=== PATIENT | female | born 1945 | race Caucasian/White ===

== ENCOUNTER 2017-03-27 08:43 | Day surgery (SDC) | payer OTHER, MEDICAID ==
[~2017-03-27] VITALS: Ht 157.5 cm; Wt 77.3 kg
[2017-03-27 08:58] VITALS: BP 131/79; PULSE 92; RESP 20; TEMP 98.2; O2SAT 94
[2017-03-27] MEDS ORDERED: LISI10TA3 PO (09:34)
[2017-03-27] MEDS ORDERED: OMEP20TA93 PO (09:34)
[2017-03-27] MEDS ORDERED: TAMO20TA6 PO (09:34)
[2017-03-27] MEDS ORDERED: LIDOCAINE HCL 1% 20 ML VIAL ONE (09:57)
[2017-03-27] MEDS ORDERED: SODIUM CHLOR 0.9% 1000 ML IV SCH ×2 (10:00)
[2017-03-27] MEDS ORDERED: SODIUM CHLORIDE 2 ML FLUSH PRN IV FLUSH (10:00)
[2017-03-27] MEDS ORDERED: MIDAZOLAM HCL 2 MG/2 ML VIAL ONE ×2 (10:31→10:34)
--- NOTE | 2017-03-27 11:06 | PD.RAD ---
Post CT Procedure Prog Note Pre Procedure Diagnosis: (1) Metastasis Post Procedure Diagnosis: (1) Metastasis Procedure Date: Mar 27, 2017 Supervising Radiologist: Sudhir Castro Anesthesia: Conscious Sedation Plan of Activity Patient to Unit: [facility] Patient Condition: Good See PACS Report for procedural detail/treatment Sudhir Castro MD Mar 27, 2017 11:06
[2017-03-27 11:20] VITALS: BP 110/68; PULSE 81; RESP 20; TEMP 98.1; O2SAT 94
[2017-03-27 11:35] VITALS: BP 120/73; PULSE 90; RESP 18; O2SAT 92
--- NOTE | 2017-03-27 11:49 | RADRPT ---
EXAM DATE/TIME: 03/27/2017 10:48 [facility] COMPARISON: No previous studies available for comparison. INDICATIONS : Concern for omental carcinomatosis. SEDATION TIME: 30 minutes BIOPSY SITE: abdomen MEDICATION(S): 1.) 3 mg midazolam (Versed) IV 2.) 150 mcg fentanyl (Sublimaze) IV DEVICE(S): 1.) 19 gauge 11cm 2.) 20 gauge Biopsy gun 16cm MEDICAL HISTORY : Carcinoma, breast. SURGICAL HISTORY : Cholecystectomy ENCOUNTER: Initial ACUITY: 1 day PAIN SCORE: 0/10 LOCATION: anterior A total of three core specimen(s) were obtained and sent to the laboratory for pathologic evaluation. PROCEDURE: 1. CT guided abdomen biopsy. 2. Conscious sedation with continuous EKG and oximetry monitoring. Prior to the procedure informed consent was obtained. Any appropriate prior imaging studies were rev iewed. Using automated exposure control and adjustment of the mA and/or kV according to patient size, radiat ion dose was kept as low as reasonably achievable to obtain optimal diagnostic quality images. DICOM format image data is available electronically for review and comparison. The site was prepped in a sterile fashion. Full sterile technique was used, including cap, mask, miguel angel rile gloves and gown and a large sterile sheet. Hand hygiene and 2% chlorhexidine and/or betadine/al cohol prep was utilized per protocol for cutaneous antisepsis. The skin and subcutaneous tissues wer e infiltrated with local anesthetic solution. With CT guidance the previously identified target was localized. Biopsy was performed using the presc ribed needle as above. Adequate hemostasis was obtained with compression at the puncture site. Follow-up CT scan reveals no hemorrhage. The patient tolerated the procedure well and there were no complications. The patient was returned to the Radiology Outpatient Unit in stable condition. CONCLUSION: Uncomplicated CT guided omental biopsy. Sudhir Castro MD on March 27, 2017 at 11:47 Board Certified Radiologist. This report was verified electronically.
[2017-03-27 12:05] VITALS: BP 120/74; PULSE 82; RESP 18; O2SAT 92
[2017-03-27 12:35] VITALS: BP 128/77; PULSE 93; RESP 18; O2SAT 92
[2017-03-27] MEDS ORDERED: SODIUM CHLORIDE 2 ML FLUSH BID IV FLUSH SCH (21:00)
== END 2017-03-27 12:50 | disposition home or self-care (01) ==
LOC: HRAD 08:43 → HRIP 08:46 → HRAD 12:50
PROVIDERS: ATTEND Internal Medicine
DX: C78.6 Secondary malignant neoplasm of retroperitoneum and peritoneum (principal); C50.912 Malignant neoplasm of unspecified site of left female breast; I10 Essential (primary) hypertension
CPT/HCPCS: 49180; 77012; 85610; 85730; 88305; 88341; 88342; 99152; 99153; J2250; J3010

== ENCOUNTER 2017-04-10 06:20 | Day surgery (SDC) | payer OTHER ==
[~2017-04-10] VITALS: Ht 157.5 cm; Wt 78.6 kg
[~2017-04-10 06:20] MED LIST: LISI10TA3 PO; OMEP20TA93 PO; TAMO20TA6 PO
[2017-04-10] MEDS ORDERED: IOHEXOL 350 MG/ML 50 ML BTL (for RAD DIAG) OTHER ONE (06:21)
[2017-04-10 06:40] VITALS: BP 142/84; PULSE 86; RESP 20; TEMP 98.4; O2SAT 95
[2017-04-10] MEDS ORDERED: POVIDONE IODINE 5% (ANTISEPSIS KIT) 4 APPLICATIONS EACH NARE SCH (07:00)
[2017-04-10] MEDS ORDERED: SODIUM CHLORIDE 0.9% 1000 ML IV SCH (07:00)
[2017-04-10] MEDS ORDERED: ceFAZolin 2 GM PREMIX 50 ML - implanted port/tunneled catheter insertion IV SCH (07:00)
[2017-04-10] MEDS ORDERED: CHLORHEXIDINE GLUCONATE 2 % 1 PACK (2 CLOTHS) TOPICAL SCH (07:00)
[2017-04-10] MEDS ORDERED: VANCOMYCIN 1000 MG/NS 250 ML - implanted port/tunneled catheter IV SCH ×2 (07:00)
[2017-04-10 07:14] LABS: AUTOMATED NEUTROPHIL # 4.7 TH/MM3 (1.8-7.7); BASOPHIL % 0.5 % (0.0-2.0); EOSINOPHIL # 0.1 TH/MM3 (0-0.4); EOSINOPHIL % 1.7 % (0.0-4.0); HEMATOCRIT 41.6 % (35.0-46.0); HEMOGLOBIN 14.7 GM/DL (11.6-15.3); LYMPH % 26.3 % (9.0-44.0); LYMPHOCYTE # 2.2 TH/MM3 (1.0-4.8); MEAN CELL VOLUME 94.9 FL (80.0-100.0); MEAN CORPUSCULAR HEMOGLOBIN 33.4 PG (27.0-34.0); MEAN CORPUSCULAR HGB CONC 35.2 % (32.0-36.0); MEAN PLATELET VOLUME 8.5 FL (7.0-11.0); MONO % 14.9 % (0.0-8.0); MONOCYTE # 1.2 TH/MM3 (0-0.9); NEUT % 56.6 % (16.0-70.0); PLATELET COUNT 258 TH/MM3 (150-450); RED BLOOD COUNT 4.39 MIL/MM3 (4.00-5.30); WHITE BLOOD COUNT 8.3 TH/MM3 (4.0-11.0)
[2017-04-10] MEDS ORDERED: MIDAZOLAM HCL 2 MG/2 ML VIAL ONE ×3 (07:32→08:36)
[2017-04-10] MEDS ORDERED: LIDOCAINE 1%/EPINEPHrine 1:100,000 SOLN 30 ML VIAL ONE (07:47)
[2017-04-10 09:00] VITALS: BP 137/75; PULSE 85; RESP 18; TEMP 98.1; O2SAT 96
[2017-04-10 09:15] VITALS: BP 112/79; PULSE 81; RESP 17; O2SAT 96
--- NOTE | 2017-04-10 09:21 | RADRPT ---
EXAM DATE/TIME: 04/10/2017 09:19 [facility] COMPARISON: No previous studies available for comparison. INDICATIONS : Patient presents with breast cancer in need of port placement for chemotherapy treatment. MEDICAL HISTORY : Migraines GERD Breast cancer HTN Osteoporosis Kidney stone SURGICAL HISTORY : Lumpectomy Lymph nodes Anel Shoulder sx ENCOUNTER: Initial ACUITY: 3 weeks PAIN SCORE: 0/10 LOCATION: N/A FLUORO TIME: 0.8 minutes IMAGE SERIES: 2 SEDATION TIME: 45 minutes CONTRAST: 8 cc Omnipaque (iohexol) 350 ACCESS: Right internal jugular vein SEDATION: 1.) 4.5 mg midazolam (Versed) IV 2.) 225 mcg fentanyl (Sublimaze) IV Prophylactic antibiotics were administered with appropriate pre-procedure timing. Vancomycin within 2 hours of procedure, Ancef (or alternative) within 1 hour of procedure. DEVICE: 1. 8 Kinyarwanda single lumen Bard Power Port PROCEDURE : 1. Continuous pulse oximetry and EKG monitoring. 2. Intravenous conscious sedation. 3. Ultrasound guidance for venous access. 4. Fluoroscopic guided implantable central venous port placement. The patient was placed supine. The neck was prepped in sterile fashion. Full sterile technique was u sed, including cap, mask, sterile gloves and gown, and a large sterile sheet. Hand hygiene and 2% ch lorhexidine Betadine was utilized per protocol for cutaneous antisepsis with appropriate dry time for site. Sterile gel and sterile probe cover were utilized for ultrasound guidance. The skin and sub cutaneous tissues were infiltrated with local anesthetic solution. Under direct ultrasound guidance, central venous access was accomplished in the targeted vessel. The ultrasound images depicting access guidance were stored and saved to PACS for permanent record. A s ubcutaneous pocket was created using blunt dissection. The port was introduced to the pocket. The c atheter tubing was fed through a subcutaneous tunnel to the venotomy site. The catheter tubing was c ut to a suitable length and then was introduced through a valved Peel-Away sheath and positioned with catheter tubing tip at the cavo-atrial junction level. The pocket incision was closed with subcutic ular Vicryl suture. Steri-Strips were applied. The port was flushed and locked with heparin solutio n per protocol. Sterile dressing was applied to the site. The patient tolerated the procedure well. Conscious sedation was performed with the prescribed dosages and duration as above in the presence of an independent trained radiology nurse to assist in the monitoring of the patient. EKG and oximetry remained stable throughout the procedure. The patient tolerated the procedure well and there were no complications. The patient was sent to post anesthesia recovery in stable condition. CONCLUSION: Uncomplicated ultrasound and fluoroscopic guided implanted central venous port catheter placement as described in detail above. An 8 Kinyarwanda Power port was placed. Micky Gonzalez MD on April 10, 2017 at 9:19 Board Certified Radiologist. This report was verified electronically.
[2017-04-10 09:45] VITALS: BP 121/69; PULSE 86; RESP 17; O2SAT 98
--- NOTE | 2017-04-10 09:54 | PD.RAD ---
Post Procedure Progress Note Pre Procedure Diagnosis: (1) Breast CA Post Procedure Diagnosis: (1) Breast CA Procedure Date: Apr 10, 2017 Supervising Radiologist: Micky Gonzalez Proceduralist/Assist: RT Ramon(R)(CV) Anesthesia: Local, Conscious Sedation Plan of Activity Patient to Unit: [facility] Patient Condition: Good See PACS Report for procedural detail/treatment Central Venous Access Device Procedure 1 Right Internal Jugular Infusaport Placement single lumen [place]an: 8 Micky Gonzalez MD Apr 10, 2017 09:54
[2017-04-10] MEDS ORDERED: SODIUM CHLORIDE 0.9% FLUSH 10 ML FLUSH IVF PRN (10:00)
[2017-04-10 10:15] VITALS: BP 136/64; PULSE 83; RESP 16; O2SAT 97
[2017-04-10 13:06] VITALS: BP 130/62; PULSE 84; RESP 17; O2SAT 97
== END 2017-04-10 11:15 | disposition home or self-care (01) ==
LOC: HROP 06:20 → HRIP 06:21 → HROP 11:15
PROVIDERS: ATTEND Internal Medicine
DX: Z45.2 Encounter for adjustment and management of vascular access device (principal); C48.0 Malignant neoplasm of retroperitoneum; Z85.3 Personal history of malignant neoplasm of breast
CPT/HCPCS: 36561; 76937; 77001; 85025; 99152; 99153; C1788; J0690; J1642; J2250; J3010; J3370; J7030; J7050; Q9967

== ENCOUNTER 2017-07-23 06:10 | Day surgery (SDC) | payer OTHER, MEDICAID ==
[~2017-07-23] VITALS: Ht 157.5 cm; Wt 72.3 kg
[2017-07-23] MEDS ORDERED: ENOX80P SQ (07:09)
[2017-07-23 07:12] VITALS: BP 136/84; PULSE 116; RESP 20; TEMP 98.2; O2SAT 95
[2017-07-23] MEDS ORDERED: SODIUM CHLORIDE 0.9% 1000 ML IV SCH (07:15)
[2017-07-23] MEDS ORDERED: MIDAZOLAM HCL 2 MG/2 ML VIAL ONE (08:33)
--- NOTE | 2017-07-23 09:10 | PD.RAD ---
Post Procedure Progress Note Pre Procedure Diagnosis: (1) Ovarian cancer Post Procedure Diagnosis: (1) Ovarian cancer Procedure Date: Jul 23, 2017 Supervising Radiologist: Star Marin Estimated blood loss: none Anesthesia: Local, Conscious Sedation Plan of Activity Patient to Unit: [facility]U Patient Condition: Fair Additional Comments: IVC filter placed without difficulty. Filter is in excellent position Full report to follow See PACS Report for procedural detail/treatment Star Marin MD Jul 23, 2017 09:10
[2017-07-23 09:20] VITALS: BP 120/72; PULSE 98; RESP 16; TEMP 98; O2SAT 97
[2017-07-23 09:35] VITALS: BP 119/69; PULSE 98; RESP 16; O2SAT 97
[2017-07-23 09:55] VITALS: BP 102/67; PULSE 98; RESP 16; O2SAT 97
[2017-07-23 10:25] VITALS: BP 111/65; PULSE 89; RESP 16; O2SAT 97
[2017-07-23 10:55] VITALS: BP 113/64; PULSE 97; RESP 16; O2SAT 97
--- NOTE | 2017-07-23 14:48 | RADRPT ---
EXAM DATE: 07/23/2017 9:27 AM EDT AGE/SEX: 72 years / Female INDICATIONS: Patient presents with a history of DVT I need of IVC filter. CLINICAL DATA: This is the patient's initial encounter. Patient reports that signs and symptoms have been present for 1 month and indicates a pain score of 0/10. MEDICAL/SURGICAL HISTORY: Deep venous thrombosis. Carcinoma, ovarian. Carcinoma, breast. Hyp othyroid Kidney Stones Cholecystectomy. COMPARISON: No prior exams available for comparison. FLUORO TIME (min): .96 IMAGE SERIES: 1 ACCESS SITE: Right internal jugular vein SEDATION TIME (min): 30 2mg midazolam (Versed) IV 100mcg fentanyl (Sublimaze) IV DEVICE(S): Right IVC Filter PROCEDURE : 1. Ultrasound-guided venipuncture. 2. Inferior venacavogram. 3. Inferior vena cava filter placement. 4. Conscious sedation with continuous EKG and oximetry monitoring. The risks, benefits and alternatives to the procedure were explained and verbal and written consent w as obtained. The site was prepped in sterile fashion. Full sterile technique was used, including ca p, mask, sterile gloves and gown and a large sterile sheet. Hand hygiene and 2% chlorhexidine and/or betadine/alcohol prep was utilized per protocol for cutaneous antisepsis. Sterile gel and sterile p robe cover were utilized for ultrasound guidance. The skin and subcutaneous tissues were infiltrated with local anesthetic solution. With ultrasound and fluoroscopic guidance the targeted vein was punctured and a vascular sheath was p laced. Inferior venacavogram was performed to demonstrate level of renal veins. No caval thrombus was identified. The prescribed filter was deployed in the infrarenal inferior vena cava. Following deplo yment the filter was identified in good position. Conscious sedation was performed with the prescribed dosages and duration as above in the presence of an independent trained radiology nurse to assist in the monitoring of the patient. EKG and oximetry remained stable throughout the procedure. The patient tolerated the procedure well and there were n o complications. The patient was sent to post anesthesia recovery in stable condition. CONCLUSION: 1. Uncomplicated inferior vena cava filter placement as above. Electronically signed by: Star Marin MD 07/23/2017 2:47 PM EDT
== END 2017-07-23 11:30 | disposition home or self-care (01) ==
LOC: HROP 06:10 → HRIP 06:10 → HROP 11:30
PROVIDERS: ATTEND Internal Medicine
DX: C56.9 Malignant neoplasm of unspecified ovary (principal); Z86.718 Personal history of other venous thrombosis and embolism; Z85.3 Personal history of malignant neoplasm of breast; E03.9 Hypothyroidism, unspecified; Z79.899 Other long term (current) drug therapy; Z79.01 Long term (current) use of anticoagulants
CPT/HCPCS: 37191; 85610; 85730; 99152; 99153; C1769; C1880; J2250; J3010

== ENCOUNTER 2017-08-17 06:20 | Observation (INO) ==
[2017-08-17] MEDS ORDERED: Metoprolol Tartrate 25 MG Tablet PO SCH (06:45)
[2017-08-17] MEDS ORDERED: Chlorhexidine Gluconate 2% 1 Pack (2 Cloths) TOPICAL SCH (06:45)
[2017-08-17] MEDS ORDERED: Heparin - SQ 10,000 UNITS/ML Vial SQ SCH (06:45)
[2017-08-17] MEDS ORDERED: HYDROmorphone PF Inj 2 MG/ML Vial ONE (06:56)
[2017-08-17] MEDS ORDERED: Sodium Chlor 0.9% Inj 500 ML IV.SIG SCH (07:00)
[2017-08-17] MEDS ORDERED: Lidocaine 1%/Epinephrine 1:100,000 Inj 30 ML Vial ONE (07:20)
[2017-08-17] MEDS ORDERED: LORazepam 0.5 MG Tablet PO PRN (09:18)
[2017-08-17] MEDS ORDERED: Sugammadex Inj 200 MG/2 ML Vial IV.PUSH ONE (09:25)
[2017-08-17] MEDS ORDERED: fentaNYL Citrate Inj 100 MCG/2 ML Ampul ONE (09:26)
[2017-08-17] MEDS ORDERED: *Meperidine Inj 25 MG/ML Vial PERIprocedural Use ONLY ONE (09:27)
--- NOTE | 2017-08-17 09:45 | ECG ---
Date Performed: 08/17/2017 Time Performed: 06:53:58 PTAGE: 72 years EKG: Sinus rhythm NONSPECIFIC T-WAVE ABNORMALITY BORDERLINE ECG Since the PREVIOUS TRACING , no significant change noted PREVIOUS TRACIN02/06/2005 04.46 DOCTOR: Hua Baldwin Interpretating Date/Time 08/17/2017 09:43:55
[2017-08-17] MEDS ORDERED: KCL 20 mEq/D5W/NaCl 0.45% Inj 1,000 ML ONE (10:37)
--- NOTE | 2017-08-17 10:52 | MP ---
cc: Bhavana Mayfield MD, Awais M MD Garrido, Mercedes DATE OF OPERATION: DATE OF PROCEDURE: 08/17/2017. PREOPERATIVE DIAGNOSIS: 1. Stage IV ovarian cancer. 2. Status post neoadjuvant Taxol, carboplatin chemotherapy. POSTOPERATIVE DIAGNOSIS: 1. Stage IV ovarian cancer. 2. Status post neoadjuvant Taxol, carboplatin chemotherapy. PROCEDURE PERFORMED: Diagnostic laparoscopy. SURGEON: Bhavana Mayfield MD ARMATURE WINDER: Jorge first coat operator. ANESTHESIA: General endotracheal anesthesia. ESTIMATED BLOOD LOSS: 30 mL IV FLUIDS: 1500 mL URINE OUTPUT: 100 mL HISTORY: This is a 72-year-old female with stage IV ovarian cancer in addition to extensive intraperitoneal carcinomatosis, pelvic disease and omental disease. She has mediastinal adenopathy and supraclavicular adenopathy, biopsy proven papillary serous adenocarcinoma and elevated CA-125. She has completed 4 cycles of Taxol and carboplatin chemotherapy. Her CA-125 has reduced significantly. Her symptoms have improved. Her ascites resolved and her findings on physical exam have improved. She has been counseled regarding the potential benefits of surgery, as well as the potential limitations, especially given that she has known disease outside the abdominal peritoneal cavity. She is seen again in the preop holding area where findings and plan of care were reviewed. Questions were asked and answered. She expressed good understanding and wants to move forward with surgery. FINDINGS: In keeping with her history, her uterus is surgically absent. The pelvis is somewhat obliterated. The ovaries are fixed to the pelvic sidewall and essentially fixed in the mid pelvis. The rectosigmoid colon is adherent to the central tumor mass and there is tumor infiltrating into and distorting the sigmoid colon, but without obvious obstruction. In the abdomen, there is still persistent large omental tumor. The tumor extends overlying the transverse colon and extends into the lower half of the gastrocolic ligament with concern for clinical adherence to and probable invasion into transverse colon. There has been otherwise, measurable response to chemotherapy in that there are minimal peritoneal implants. The small bowel is relatively mobile, although there are small implants on the bowel wall and the mesentery. There is no impending obstruction anywhere in either the large or small bowel. The findings were such that it was thought that the pelvic disease could likely not be resected without a rectosigmoid resection due to tumor infiltration into the mesentery and probably the wall of the sigmoid colon. Additionally, the omental tumor could not be satisfactorily debulked without probably requiring transverse colectomy. The aforementioned steps would result in multifocal large bowel resections with need to heal from anastomosis with risk of anastomotic leak, risk of colostomy, sepsis, delayed healing and other concerns. All taking into account the fact that this would not resolve the measurable disease, that she has disease beyond the abdomen and pelvis and the chest and supraclavicular region, as noted. Irrespective of steps taken or not taken with surgery, chemotherapy will still be necessary and it was felt that the morbidity of aggressive surgery would exceed the benefit and accordingly a diagnostic laparoscopy is performed with findings as outlined and described above. PROCEDURE: She is taken to the operating room and placed in dorsal lithotomy position, after general endotracheal anesthesia was administered. A timeout was undertaken. She was identified by sight recognition and hospital ID bracelet. The proposed procedure was reviewed and confirmed. She was carefully positioned in padded Rosendo stirrups. Her arms were padded and secured to the sides. She was further secured to the operating table with egg crate padding and tape and across chest over the shoulder fashion. All sites noted to be properly aligned with no malalignment or pressure points. She was prepped in sterile fashion. A Leavitt catheter was placed. Confirmed that an orogastric tube was in the stomach on suction. With manual elevation of the abdominal wall and direct laparoscopic visualization, a 5 mm cannula was introduced into the left upper quadrant in an atraumatic fashion and carbon dioxide gas was insufflated. Under laparoscopic visualization, an 8 mm cannula was placed in the right upper quadrant and a 5 mm cannula was placed in the midline above the umbilicus. A band of adhesions to the umbilicus were taken down with focal cautery and sharp dissection and then blunt dissection and mobilization were used to explore the anatomy with findings as described above. For the reasons mentioned, it was felt that aggressive surgical intervention would be associated with morbidity that exceeded benefit, and it was felt that surgical steps were ill advised and that chemotherapy would continue to be the cornerstone of management at this time. Some bleeding was noted on the omental tumor and from the sites where the adhesions were taken down. This was rendered hemostatic with topical Tisseel application, which rendered sites hemostatic. There were no remaining foreign objects in the peritoneal cavity. Adhesions were lysed. Preliminary counts were correct. Sites were hemostatic. Attention was then directed toward closing. The laparoscopic instruments were removed. The cannulas were removed after the carbon dioxide gas was released. The incisions were closed with 3-0 Vicryl subcutaneous, 3-0 Vicryl subcuticular and Steri-Strips. Pelvic exam confirmed there were no remaining foreign objects in the vagina. Preliminary and final counts were correct. She was returned to dorsal supine position and pending reversal of anesthesia when I left the operating room to precede her to the postanesthesia care unit. MD PRAKASH Pompa/JOSÉ LUIS , 10:21 AM , 10:50 AM
--- NOTE | 2017-08-17 14:30 | P.PNONC ---
Subjective Interval history: post op note: patient is resting in bed with family at bedside no complaints denies any n/v or pain Objective Vital Signs/Intake & Output: Vital Signs 08/17/17 07:19 08/17/17 09:18 08/17/17 09:30 Temperature 98.5 F 97.6 F 97.6 F Pulse Rate 98 H 90 93 H Respiratory Rate 20 14 14 Blood Pressure 114/63 107/69 109/68 Pulse Oximetry 97 97 95 08/17/17 09:45 08/17/17 10:45 Temperature 97.6 F 97.6 F Pulse Rate 91 H 86 Respiratory Rate 14 16 Blood Pressure 95/53 L 100/56 L Pulse Oximetry 95 93 L Intake & Output 08/16/17 08/17/17 08/17/17 18:59 06:59 18:59 Intake Total 1500 / 1500 Output Total 130 / 130 Balance 1370 / 1370 Weight 74.1 kg Intake: Anesthesia Amount 1500 / 1500 Output: Estimated Blood Loss 30 / 30 Urine Amount (Catheter) 100 / 100 Indwelling Urethral Catheter 100 / 100 Other: Weight On Admission 74.1 kg Laboratory Results: Laboratory Results - last 24 hr 08/17/17 07:20 Blood Type O Negative Antibody Screen Negative MTS Gel Crossmatch See Detail Medications: Active Medications Generic Name Dose Route Start Last Admin Trade Name Freq PRN Reason Stop Dose Admin Chlorhexidine Gluconate 3 pack 08/17/17 06:45 08/17/17 06:30 Chlorhexidine 2% Cloth TOPICAL 08/20/17 06:37 3 pack FAMILY COACH TAMMY Administration Heparin Sodium (Porcine) 5,000 units 08/17/17 06:45 08/17/17 07:30 Heparin Inj SQ 08/18/17 06:44 5,000 units FAMILY COACH TAMMY Administration Cefazolin Sodium 1,000 mg/ 100 mls @ 200 mls/hr 08/17/17 07:00 08/17/17 07:30 Sodium Chloride IV.SIG 08/18/17 06:59 200 mls/hr FAMILY COACH TAMMY Administration Metoprolol Tartrate 25 mg 08/17/17 06:45 08/17/17 07:38 Lopressor PO 08/20/17 06:37 Not Given FAMILY COACH TAMMY Ondansetron HCl 4 mg 08/17/17 12:45 08/17/17 12:39 Zofran Odt PO 4 mg Q6H PRN Administration NAUSEA OR VOMITING Povidone Iodine 1 applicatio 08/17/17 06:45 08/17/17 07:30 Betadine 5% Antisepsis Kit EACH NARE 08/20/17 06:37 1 applicatio FAMILY COACH TAMMY Administration Objective Remarks: GENERAL: Well-nourished, well-developed patient. SKIN: Warm and dry. HEAD: Normocephalic. EYES: No scleral icterus. No injection or drainage. CARDIOVASCULAR: Regular rate and rhythm without murmurs. RESPIRATORY: Breath sounds equal bilaterally. No accessory muscle use. GASTROINTESTINAL: Abdomen soft, non-tender, nondistended. SS are c/d/i EXTREMITIES: teds and scds MUSCULOSKELETAL: Adequate muscle tone. NEUROLOGICAL: No obvious focal deficit. Awake, alert, and oriented x3. PSYCHIATRIC: Appropriate mood and affect; insight and judgment normal. Assessment/Plan - Plan s/p RA lap hyst and debulking surgery for patient with diagnosis of ovarian cancer post op orders in chart Leavitt to straight drain, D/C in am will add Reglan 10 mg IV if needed for nausea/vomiting OK to use infusa port site OOB to chair with assistance pain meds per EMR anticipate discharge in the next 24 hours
[2017-08-17] MEDS ORDERED: Phenylephrine/NS 1000 MCG/10ML Syringe IV.PUSH ONE (14:59)
[2017-08-17] MEDS ORDERED: Lidocaine PF 1% Inj 5 ML Syringe INFILTRATN ONE (14:59)
[2017-08-17] MEDS: Ketorolac Inj 30 MG/ML (IVP) Vial IV.PUSH SCH ×2 (15:15→20:11)
[2017-08-18] MEDS: Ketorolac Inj 30 MG/ML (IVP) Vial IV.PUSH SCH ×2 (02:52→08:34)
[2017-08-18] MEDS: KCL 20 mEq/D5W/NaCl 0.45% Inj 1,000 ML IV.CONT SCH ×3 (05:49→05:51)
--- NOTE | 2017-08-18 07:22 | MD ---
cc: Bhavana Mayfield MD, Awais M MD Garrido, Mercedes MD DATE OF DISCHARGE: PROCEDURE: 08/17/2017 a diagnostic laparoscopy. DIAGNOSIS: Ovarian cancer. HOSPITAL COURSE: She did well in her early postop period, remained hemodynamically stable, tolerating oral intake. Leavitt catheter removed pending voiding. Ins and outs 3000/2155. Labs pending. PHYSICAL EXAMINATION: GENERAL: She is alert and oriented x 3. VITAL SIGNS: Afebrile. Vital signs stable. LUNGS: Clear. CARDIOVASCULAR: Regular rate and rhythm. ABDOMEN: Incision is clean and dry. EXTREMITIES: Nontender. ASSESSMENT: Postoperative day number 1, doing well in the early postop period. Findings at the time of surgery, status of the ovarian cancer and recommendations for continued chemotherapy are discussed. Her activities and restrictions are reviewed. She is to resume her prior medications and she can restart her Lovenox today as previously ordered and is to contact our office to schedule followup in approximately 2 weeks and the office number is again made available. PLAN: As outlined above. Anticipate discharge to home today. She is to contact our office between now and the time of scheduled followup, should she have any questions or concerns. MD PRAKASH Pompa/TRAVIS , 07:10 AM , 07:21 AM
[2017-08-18] MEDS ORDERED: Heparin - SQ 10,000 UNITS/ML Vial SQ SCH (08:00)
[2017-08-18] MEDS ORDERED: Pantoprazole Sodium 20 MG DR Tablet PO SCH (09:00)
[2017-08-18] MEDS ORDERED: Lisinopril 10 MG Tablet PO SCH (09:00)
[2017-08-18 10:23] LABS: Baso % (Auto) 0.3 % (0.0-2.0); Eos % (Auto) 0.3 % (0.0-4.0); Hematocrit 29.2 % (35.0-46.0); Hemoglobin 9.9 gm/dL (11.6-15.3); Mean Corpuscular Hemoglobin 34.3 pg (27.0-34.0); Mean Corpuscular Volume 100.8 fL (80.0-100.0); Mean Platelet Volume 8.1 fL (7.0-11.0); Mono % (Auto) 11.2 % (0.0-8.0); Neut # (Auto) 5.8 th/mm3 (1.8-7.7); Neut % (Auto) 65.2 % (16.0-70.0); Platelet Count 185 th/mm3 (150-450); Red Blood Count 2.89 mil/mm3 (4.00-5.30); Red Cell Distribution Width 23.5 % (11.6-17.2); White Blood Count 8.9 th/mm3 (4.0-11.0)
[2017-08-18 10:39] LABS: Calcium 8.1 mg/dL (8.5-10.1); Carbon Dioxide 22.6 meq/L (21.0-32.0)
== END 2017-08-18 15:00 | disposition home or self-care (01) ==
LOC: HSDI 06:20 → HCIN 06:20 → HSDC 06:20 → EDSTATUS 07:30 → HCIN 11:19
PROVIDERS: ADMIT Obstetrics & Gynecology Gynecologic Oncology; ATTEND Obstetrics & Gynecology Gynecologic Oncology
PROC: LAPSCPY (ICD-10-PCS; 2017-08-17 07:35)